=== PATIENT | female | born 1980 | race Caucasian/White ===

== ENCOUNTER 2017-03-16 16:51 | Emergency (ER) | payer BC ==
[2017-03-16] MEDS ORDERED: NORMAL SALINE 1,000 ML IV ONE (17:31)
[2017-03-16] MEDS ORDERED: ONDANSETRON HCL/PF 2 MG/ML VIAL IV ONE (17:31)
--- NOTE | 2017-03-16 17:31 | ERNOTE ---
Medical Problem HPI - Narrative Date of Service: 03/16/17 - General Chief Complaint: Nausea/Vomiting Time Seen by Provider: 03/16/17 17:16 Source: patient, RN notes reviewed Exam Limitations: no limitations - Immun/Allergies/Home Medications Immunizations: IMMUNIZATION HX Immunizations Up to Date Yes History of Influenza Vaccine No Hx Pneumococcal Vaccination No Allergies/Adverse Reactions: Allergies gabapentin [From Neurontin] Allergy (Severe, Verified 03/16/17 16:59) Other seizure Penicillins Allergy (Severe, Verified 03/16/17 16:59) Anaphylaxis adhesive tape Adverse Reaction (Verified 03/16/17 16:59) Home Medications: HOME MEDICATIONS Omeprazole [Prilosec] 40 mg PO DAILY #30 cap 12/13/15 [Last Taken Unknown] Ondansetron HCl [Zofran] 4 mg PO BID PRN #12 tab 12/13/15 [Last Taken Unknown] Promethazine HCl [Phenergan] 25 mg PO Q6H PRN #16 tablet 03/16/17 [Last Taken Unknown] metroNIDAZOLE [Flagyl] 500 mg PO TID 03/16/17 [Last Taken Unknown] - History of Present History Narrative: 37 y/o female with nausea and malaise after being started on Flagyl on 03/11 for CDiff. She reports that her diarrhea has improved. She has not submitted a stool sample yet. She has had CDiff in the past. She reports that Flagyl did not work and she had to be hospitalized and given IV Vancomycin. She also has Zofran for nausea. This is not helping. Review of Systems - Review of Systems Constitutional: Present: fatigue, malaise. Absent: fever, chills EYE: Present: no symptoms reported ENT: Present: no symptoms reported Respiratory: Absent: shortness of breath, cough Cardiology: Absent: chest pain, syncope Gastrointestinal/Abdominal: Present: nausea, diarrhea, eating less, drinking less. Absent: vomiting, abdominal pain Genitourinary: Present: decreased urinary output. Absent: frequency, dysuria Musculoskeletal: Absent: back pain, neck pain, joint pain Skin: Absent: rash, lesions Neurological: Present: dizziness/light-headedness. Absent: headache Endocrine: Present: no symptoms reported Hematologic/Lymphatic: Present: no symptoms reported Psych: Present: no symptoms reported - Patient's Past Medical History Patient History - Medical: Depression, Hypothyroidism, Obesity, Other Patient History - Cardiac/Respiratory: No pertinent hx Patient History - Cancer: No Hx of Cancer Patient History - Surgical Procedures: Back Surgery, , Other Patient History - Other: None LMP (females 10-50): other LMP (Calendar): 11/19/15 - Social History Living Situations: home Psych History: Hx of Depression Smoking Status: Never smoker - Immunizations Immunizations Up to Date: Yes Hx Pneumococcal Vaccination: No History of Influenza Vaccine: No Physical Exam - Physical Exam General Appearance: Present: wd/wn, alert, mild distress, obese Neck: Present: normal inspection, nontender, supple Respiratory: Present: no respiratory distress, normal breath sounds, no accessory muscle use, lungs clear Cardiovascular/Chest: Present: regular rate, rhythm, no murmur Gastrointestinal/Abdominal: Present: normal bowel sounds, nontender, nondistended, soft Back Exam: Present: normal inspection, no CVA tenderness Extremity Exam: Present: normal inspection, normal range of motion, no edema Neurological Exam: Present: alert, oriented, normal mood/affect, no motor/ sensory deficits Skin Exam: Present: normal color, warm/dry ED Progress - Results and Orders Patient's Lab Results:: I have reviewed the patient's lab results. - Vital Signs Patient's Vital Signs:: I have reviewed the patient's vital signs. Vital Signs: Vital Signs 03/16/17 16:55 Temperature 36.3 C L Pulse Rate 78 Respiratory 17 Rate Blood Pressure 132/78 O2 Sat by Pulse 99 Oximetry - Progress/Reassessment Chief Complaint: Nausea/Vomiting Progress:: Improved Plan - Plan Plan: Possible UTI on UA but will defer antibiotic treatment pending culture as patient is already being treated for diarrhea presumed to be CDiff. Stool sample collected as well and results are pending. Departure - Departure Clinical Impression: Diarrhea of presumed infectious origin, Nausea Disposition: Home Follow Up Needed Condition: Stable Instructions: Diarrhea, Adult, [id number] Additional Instructions: Continue Flagyl for now Try Phenergan for nausea in place of Zofran Referrals: Lotus Zamora FNP [Primary Care Provider] - Prescriptions: Promethazine HCl [Phenergan] 25 mg PO Q6H PRN #16 tablet PRN Reason: Nausea
[2017-03-16] MEDS ORDERED: ONDANSETRON HCL/PF 2 MG/ML VIAL ONE (17:40)
[2017-03-16 17:42] LABS: Urine Bilirubin Negative (NEGATIVE); Urine Blood 250 /ul (NEGATIVE); Urine Ketone 5 mg/dL (NEGATIVE); Urine Nitrite Negative (NEGATIVE); Urine Protein Negative (NEGATIVE); Urine Specific Gravity 1.025 SP.GR. (1.005-1.010); Urine Urobilinogen Normal (NORMAL)
[2017-03-16 17:46] LABS: Hematocrit 45.6 % (37.0-47.0); Hemoglobin 15.4 gm/dL (12.5-16.0); Mean Cell Volume 84.6 fl (78-100); Mean Corpuscular Hemoglobin 28.6 pg (27-31); Mean Corpuscular Hgb Conc 33.8 g/dl (32-36); Neutrophil # 5.2 K/mm3 (1.3-6.0); Neutrophil % 60.8 % (42-75.0); Platelet Count 370 K/mm3 (150-450); Red Blood Count 5.39 M/mm3 (4.2-5.4); Red Cell Distribution Width 12.6 % (11.5-14.0); White Blood Count 8.6 K/mm3 (4.0-10.5)
[2017-03-16 17:54] LABS: Urine Appearance Slightly Cloudy; Urine Color Amber; Urine WBC TRACE /hpf (0-5)
[2017-03-16 17:55] LABS: Urine Bacteria 1+
[2017-03-16 18:07] LABS: Anion Gap 12.3 mmol/L (6.8-13.8); BUN/Creatinine Ratio 9.8 (9.0-21.6); Bilirubin, Total 0.5 mg/dL (0.0-1.1); Ca. Corrected For Albumin 8.9 mg/dL (8.4-10.2); Calcium * 9.2 mg/dL (7.9-10.9); Carbon Dioxide 28.5 mmol/L (24-32.6); Potassium 3.8 mmol/L (3.4-4.6); Total Protein 8.5 gm/dL (6.2-8.2)
[2017-03-16 19:18] VITALS: BP 157/94
[2017-03-16 20:05] LABS: CDIFF Negative (Negative)
== END 2017-03-16 19:11 | disposition home or self-care (01) ==
LOC: ER 16:51
DX: A09 Infectious gastroenteritis and colitis, unspecified (principal); R11.0 Nausea
CPT/HCPCS: 36415; 80053; 81001; 84703; 85025; 87045; 87046; 87086; 87425; 87493; 96374; 99283; J2405

== ENCOUNTER 2017-03-18 10:15 | Emergency (ER) | payer BC ==
[2017-03-18] MEDS ORDERED: ONDANSETRON HCL/PF 2 MG/ML VIAL IV ONE (10:38)
[2017-03-18] MEDS ORDERED: NORMAL SALINE 1,000 ML IV ONE (10:39)
[2017-03-18] MEDS ORDERED: KETOROLAC TROMETHAMINE 30 MG/ML VIAL IV ONE (10:40)
--- NOTE | 2017-03-18 10:48 | ERNOTE ---
Medical Problem HPI - Narrative Date of Service: 03/18/17 - General Chief Complaint: General Assessment Time Seen by Provider: 03/18/17 10:31 Source: patient Exam Limitations: no limitations - Immun/Allergies/Home Medications Immunizations: IMMUNIZATION HX Immunizations Up to Date Yes History of Influenza Vaccine No Hx Pneumococcal Vaccination No Allergies/Adverse Reactions: Allergies gabapentin [From Neurontin] Allergy (Severe, Verified 03/18/17 10:23) Other seizure Penicillins Allergy (Severe, Verified 03/18/17 10:23) Anaphylaxis clindamycin Allergy (Intermediate, Verified 03/18/17 10:23) Hives adhesive tape Adverse Reaction (Verified 03/18/17 10:23) Home Medications: HOME MEDICATIONS Omeprazole [Prilosec] 40 mg PO DAILY #30 cap 12/13/15 [Last Taken Unknown] Ondansetron HCl [Zofran] 4 mg PO BID PRN #12 tab 12/13/15 [Last Taken Unknown] Promethazine HCl [Phenergan] 25 mg PO Q6H PRN #16 tablet 03/16/17 [Last Taken Unknown] Ambien 03/18/17 [Last Taken Unknown] Depakote 03/18/17 [Last Taken Unknown] Dicyclomine HCl [Bentyl] 10 mg PO QID #40 capsule 03/18/17 [Last Taken Unknown] Levothyroxine Sodium [Synthroid] 75 mcg PO DAILY 03/18/17 [Last Taken Unknown] Ondansetron [Zofran Odt] 4 mg PO Q6H PRN #20 tab 03/18/17 [Last Taken Unknown] - History of Present History Narrative: Pt. comes in with c/o diffuse abdominal pain and NVD for 10 days. Pt. was seen by her PCP a week ago and she was diagnosed empirically with CDIFF and placed on Flagyl, then pt. was seen two days ago for the same symptoms and adding weakness and dehydration, by one of our ERNP and was diagnosed with gastroenteritis and UTI and continued on the Flagyl but her stool cultures were negative as well as her urine cultures. Pt. states that despite taking Zofran her symptoms have not improved and she feels worse with each passing day. Pt. denies any fever. Review of Systems - Review of Systems Constitutional: Present: recent illness, weakness, fatigue, malaise, weight loss. Absent: fever, chills EYE: Present: no symptoms reported ENT: Present: no symptoms reported. Absent: nose pain, nose congestion, nasal drainage, sore throat Respiratory: Present: no symptoms reported. Absent: shortness of breath, cough , wheezing Cardiology: Present: no symptoms reported. Absent: chest pain, palpitations, edema Gastrointestinal/Abdominal: Present: nausea, vomiting, diarrhea, abdominal pain , eating less, drinking less. Absent: constipation Genitourinary: Present: pain, dysuria, hematuria. Absent: frequency, decreased urinary output, discharge Musculoskeletal: Present: no symptoms reported. Absent: back pain, neck pain, joint pain Skin: Present: no symptoms reported. Absent: rash, change in color, change in hair/nails Neurological: Present: dizziness/light-headedness, weakness. Absent: headache, numbness, tingling All Other Systems: All systems neg except as marked - Patient's Past Medical History Patient History - Medical: Depression, Hypothyroidism, Obesity, Other Patient History - Cardiac/Respiratory: No pertinent hx Patient History - Cancer: No Hx of Cancer Patient History - Surgical Procedures: Back Surgery, , Other Patient History - Other: None LMP (females 10-50): unknown LMP (Calendar): 11/19/15 - Family History Mom Family History - Cardiac/Respiratory: Hypertension, Hyperlipidemia, Myocardial Infarction Family History - Cancer: Breast - Social History Living Situations: home Psych History: Hx of Depression Smoking Status: Never smoker Have you smoked in the past 12 months: No - Immunizations Immunizations Up to Date: Yes Hx Pneumococcal Vaccination: No History of Influenza Vaccine: No Physical Exam - Physical Exam General Appearance: Present: alert, anxious, lethargic, obese Head Exam: Present: normal inspection, no evidence of injury Eye Exam: Normal inspection: bilateral, PERRL: bilateral, EOMI: bilateral Ears, Nose, Throat: Present: normal ENT inspection, normal pharynx Neck: Present: normal inspection, nontender. Absent: lymphadenopathy (R), lymphadenopathy (L) Respiratory: Present: no respiratory distress, normal breath sounds, no accessory muscle use, chest nontender, lungs clear. Absent: crackles, rales, rhonchi, wheezing Cardiovascular/Chest: Present: regular rate, rhythm, no murmur, normal peripheral pulses Gastrointestinal/Abdominal: Present: soft, tenderness - LUQ, abnormal bowel sounds - hyper. 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 Absent: skin rash ED Progress - Date and Time Seen: Date and Time: 03/18/17 12:01 Pt. with scattered air fluid levels and hematuria so will obtain abdomninal CT especially since pt. has gone relatively undiagnosed with shelter acute problem. 03/18/17 15:45 As renal stone and colitis are ruled out feel taht we can confidently say that pt. has viral gastroenteritis and treat with zofran and Bentyl - Results and Orders Patient's Lab Results:: I have reviewed the patient's lab results. - Vital Signs Patient's Vital Signs:: I have reviewed the patient's vital signs. Vital Signs: Vital Signs 03/18/17 10:25 Temperature 36.6 C Pulse Rate 80 Respiratory 16 Rate Blood Pressure 147/92 O2 Sat by Pulse 99 Oximetry - X-Ray X-Ray #1 X-Ray: abdomen Interpretation: Reviewed by me X-ray Comments: non obstructive scattered bowel gas indicative of loose stools. - CT/Ultrasound CT/Ultrasound Narrative: CT abd without any signs of renal stone or colitis - Progress/Reassessment Chief Complaint: General Assessment Departure - Departure Clinical Impression: Acute gastroenteritis Disposition: Home self-care Condition: Good Instructions: Viral Gastroenteritis, Adult, [id number] Additional Instructions: Please follow up with primary provider in 2-3 days if no improvement take Bentyl and Zofran as ordered. Referrals: Lotus Zamora FNP [Primary Care Provider] - Prescriptions: Dicyclomine HCl [Bentyl] 10 mg PO QID #40 capsule Ondansetron [Zofran Odt] 4 mg PO Q6H PRN #20 tab PRN Reason: Nausea And Vomiting
[2017-03-18] MEDS ORDERED: ONDANSETRON HCL/PF 2 MG/ML VIAL ONE (10:56)
[2017-03-18] MEDS ORDERED: KETOROLAC TROMETHAMINE 30 MG/ML VIAL ONE (10:56)
[2017-03-18 10:57] LABS: Hematocrit 42.4 % (37.0-47.0); Hemoglobin 14.1 gm/dL (12.5-16.0); Mean Cell Volume 85.5 fl (78-100); Mean Corpuscular Hemoglobin 28.4 pg (27-31); Red Blood Count 4.96 M/mm3 (4.2-5.4); White Blood Count 6.3 K/mm3 (4.0-10.5)
[2017-03-18 10:58] LABS: Mean Corpuscular Hgb Conc 33.3 g/dl (32-36); Neutrophil # 3.5 K/mm3 (1.3-6.0); Neutrophil % 54.7 % (42-75.0); Platelet Count 299 K/mm3 (150-450); Red Cell Distribution Width 12.8 % (11.5-14.0)
[2017-03-18 11:14] LABS: Albumin * 3.5 gm/dl (3.4-5.0); Anion Gap 13.3 mmol/L (6.8-13.8); BUN/Creatinine Ratio 8.4 (9.0-21.6); Bilirubin, Total 0.4 mg/dL (0.0-1.1); Ca. Corrected For Albumin 8.6 mg/dL (8.4-10.2); Calcium * 8.5 mg/dL (7.9-10.9); Carbon Dioxide 25.5 mmol/L (24-32.6); Potassium 3.8 mmol/L (3.4-4.6); Total Protein 7.3 gm/dL (6.2-8.2)
[2017-03-18 11:19] LABS: Urine Bilirubin Negative (NEGATIVE); Urine Blood 50 /ul (NEGATIVE); Urine Ketone Negative (NEGATIVE); Urine Nitrite Negative (NEGATIVE); Urine Protein Negative (NEGATIVE); Urine Specific Gravity 1.015 SP.GR. (1.005-1.010); Urine Urobilinogen Normal (NORMAL); Urine pH 6.5 pH (5.0-7.0)
[2017-03-18 11:26] LABS: Urine Appearance Clear; Urine Bacteria TRACE; Urine Color Dark Yellow; Urine WBC 0-5 /hpf (0-5)
[2017-03-18] MEDS ORDERED: DIATRIZOATE MEGLUMINE, SODIUM 30 ML BTL PO ONE (12:02)
[2017-03-18] MEDS ORDERED: DIATRIZOATE MEGLUMINE, SODIUM 30 ML BTL ONE (12:12)
[2017-03-18] MEDS ORDERED: METOCLOPRAMIDE HCL 5 MG/ML VIAL ONE (13:30)
[2017-03-18] MEDS ORDERED: METOCLOPRAMIDE HCL 5 MG/ML VIAL IV ONE (13:31)
[2017-03-18 15:25] VITALS: BP 130/98
== END 2017-03-18 15:49 | disposition home or self-care (01) ==
LOC: ER 10:15
DX: K52.9 Noninfective gastroenteritis and colitis, unspecified (principal); E03.9 Hypothyroidism, unspecified
CPT/HCPCS: 36415; 74020; 74177; 80053; 81001; 82150; 83690; 84703; 85025; 87077; 87086; 87186; 96374; 96375; 99284; J2405